=== PATIENT | male | born 1990 | race Caucasian/White ===

== ENCOUNTER 2017-05-15 20:31 | Emergency (ER) | payer BC ==
[~2017-05-15] VITALS: Ht 190.5 cm; Wt 108.9 kg
[2017-05-15] MEDS ORDERED: ALBUTEROL SULF 0.083% NEB SOLN 3 ML NEB NEB STA (20:33)
[2017-05-15] MEDS ORDERED: IPRATROPIUM BROMIDE 0.02% 2.5 ML NEB NEB STA (20:33)
[2017-05-15] MEDS ORDERED: ACETAMINOPHEN/CODEINE ELIX 120-12 MG/5 ML UDC PO ONE (20:45)
[2017-05-15] MEDS ORDERED: KETOROLAC TROMETHAMINE 60 MG/2 ML VIAL IM ONE (21:00)
--- NOTE | 2017-05-15 21:32 | Diagnostic Imaging Report ---
EXAM: CHEST 2 VIEWS, RIBS UNILAT W/CXR, PA and lateral and oblique DATE: 05/15/2017 8:33 PM Time stamp on exam: 2057 hours INDICATION: Mid rib pain, left side COMPARISON: None FINDINGS: LINES/TUBES: None LUNGS: No consolidations or edema. PLEURA: No effusions or pneumothorax. HEART AND MEDIASTINUM: Normal size and contour. BONES AND SOFT TISSUES: Acute nondisplaced left posterior and lateral ninth rib fractures. Adjacent pleural thickening. IMPRESSION: Acute nondisplaced left posterior and lateral ninth rib fractures. No pneumothorax or hemothorax. Signed by: Dr. Indy Dorado M.D. on 05/15/2017 9:29 PM
== END 2017-05-15 22:46 | disposition home or self-care (01) ==
LOC: ER 20:31
DX: J20.9 Acute bronchitis, unspecified (principal); S22.32XA Fracture of one rib, left side, initial encounter for closed fracture
CPT/HCPCS: 71020; 71101; 94644; 96372; 99284; J1885; 71046

== ENCOUNTER 2024-08-13 10:32 | Emergency (ER) | payer SELFPAY ==
[~2024-08-13] VITALS: Ht 190.5 cm; Wt 108.9 kg
[2024-08-13 10:49] VITALS: PULSE 102; RESP 18; TEMP 98.1; O2SAT 97
[2024-08-13] MEDS: IBUPROFEN 600 MG TAB PO STA (11:05)
[2024-08-13] MEDS: ACETAMINOPHEN 325 MG TAB PO ONE (12:16)
== END 2024-08-13 12:39 | disposition home or self-care (01) ==
LOC: ER 10:42
DX: S90.31XA Contusion of right foot, initial encounter (principal); W20.8XXA Other cause of strike by thrown, projected or falling object, initial encounter; Y99.0 Civilian activity done for income or pay; I10 Essential (primary) hypertension
CPT/HCPCS: 99283